=== PATIENT | male | born 1940 | race Caucasian/White ===

== ENCOUNTER 2024-05-05 12:49 | Outpatient (CLI) | payer MEDICARE ==
[~2024-05-05 12:49] MED LIST: Magnevist 469MG/ML 20 ML VIAL ONE
== END 2024-05-05 12:50 | disposition home or self-care (01) ==
LOC: CSHMRI 12:49
PROVIDERS: ATTEND Surgery
DX: H53.9 Unspecified visual disturbance (principal)
CPT/HCPCS: 70553